=== PATIENT | female | born 1990 | race Asian ===

== ENCOUNTER → 2016-08-02 | Outpatient (CLI) | payer OTHER ==
[2016-08-02 12:58] LABS: BASO % 1 % (0-3); EOS % 2 % (0-3); HEMATOCRIT 35.7 % (36.0-47.0); HEMOGLOBIN 12.2 g/dL (12.0-15.5); LYMPH # 2.2 x10^3/uL (1.0-4.8); LYMPH % 37 % (24-48); MEAN CORPUSCULAR HEMOGLOBIN 30 pg (25-35); MEAN CORPUSCULAR HGB CONC 34 g/dL (31-37); MEAN CORPUSCULAR VOLUME 87 fL (79-100); MONO % 9 % (0-9); NEUT % 51 % (31-73); PLATELET COUNT 245 x10^3/uL (140-400); RED BLOOD COUNT 4.13 x10^6/uL (3.50-5.40); WHITE BLOOD COUNT 5.9 x10^3/uL (4.0-11.0)
[2016-08-02 13:18] LABS: CALCIUM 9.1 mg/dL (8.5-10.1); CREATININE 0.5 mg/dL (0.6-1.0); GFR 149.1; POTASSIUM 3.6 mmol/L (3.5-5.1); TOTAL BILIRUBIN 0.6 mg/dL (0.2-1.0); TOTAL PROTEIN 7.9 g/dL (6.4-8.2)
[2016-08-02 13:39] LABS: BILIRUBIN,URINE NEGATIVE (NEG); GLUCOSE,URINE NEGATIVE (NEG); NITRITE,URINE NEGATIVE (NEG); PH,URINE 7.5; PROTEIN,URINE NEGATIVE (NEG-TRACE); UROBILINOGEN,URINE 0.2 mg/dL (0.2 mg/dL)
[2016-08-02 13:47] LABS: BACTERIA,URINE 0 /HPF (0-FEW); RBC,URINE OCC /HPF (0-2); SQUAMOUS EPITHELIAL CELL,UR MOD /LPF; WBC,URINE 0 /HPF (0-4)
[2016-08-03 11:25] LABS: NEG OBC UR NEG; POS OBC UR POS
== END | disposition home or self-care (01) ==
LOC: LAB 12:37
PROVIDERS: ATTEND Internal Medicine
DX: Z00.01 Encounter for general adult medical examination with abnormal findings (principal); N39.0 Urinary tract infection, site not specified
CPT/HCPCS: 36415; 80053; 80061; 81001; 81025; 83036; 84443; 85027

== ENCOUNTER → 2016-08-10 | Outpatient (CLI) | payer OTHER ==
--- NOTE | 2016-08-10 09:14 | RAD ---
Examination: Ultrasound pelvis History: History of irregular menses Comparison: None available Findings: The uterus measures 9.9 x 6.4 x 4.9 cm. Endometrium measures 9.5 mm in thickness. The right ovary measures 2.6 x 1.5 x 1.7 cm. The left ovary measures 3.1 x 3.2 x 1.4 cm. Blood flow identified in the right and left ovaries. Impression: Unremarkable visualized exam.
--- NOTE | 2016-08-10 09:16 | RAD ---
Examination: Ultrasound abdomen complete History: History of abdominal pain. Comparison: None available Findings: The visualized pancreas grossly appears unremarkable. The visualized aorta, IVC appear patent. The echogenicity of the liver grossly appears unremarkable. The right lobe of the liver measures 13.8 cm. No evidence of gallstones identified. The common bile duct measures 2 mm in transverse dimension. The right kidney measures 10.6 x5.2 x4.5 cm. The left kidney measures 11.6 x 4.6 x 5.6 cm. The visualized spleen grossly appears unremarkable. Impression: Unremarkable visualized exam.
== END | disposition home or self-care (01) ==
LOC: EDUNIT# 08-07 15:00 → US 07:50
PROVIDERS: ATTEND Internal Medicine
DX: N92.6 Irregular menstruation, unspecified (principal); R10.2 Pelvic and perineal pain; R10.9 Unspecified abdominal pain
CPT/HCPCS: 76700; 76856